=== PATIENT | male | born 1950 | race Caucasian/White ===

== ENCOUNTER → 2016-06-22 | Outpatient (REF) ==
[2016-06-22 11:29] LABS: MEAN PLATELET VOLUME 9.8 FL (6.0-9.5); WHITE BLOOD COUNT 5.3 10^3uL (4.0-11.0)
[2016-06-22 11:30] LABS: MEAN CORPUSCULAR HEMOGLOBIN 32.8 PG (26.0-34.0); MEAN CORPUSCULAR HGB CONC 35.5 g/dL (31.0-37.0)
[2016-06-22 11:41] LABS: ALBUMIN 4.5 g/dL (3.4-5.0); ANION GAP 13.5 MEQ/L (3-15); CALCULATED IONIZED CALCIUM 3.9 mg/dL (3.8-4.6)
== END ==
LOC: CLAB.BLUES 11:14
PROVIDERS: ATTEND Family Medicine
DX: G30.9 Alzheimer's disease, unspecified (principal)
CPT/HCPCS: 80053; 80061; 85027

== ENCOUNTER → 2016-09-07 | Outpatient (REF) ==
[2016-09-07 15:45] LABS: ALBUMIN 4.8 g/dL (3.4-5.0); ANION GAP 18.3 MEQ/L (3-15); CALCULATED IONIZED CALCIUM 4.1 mg/dL (3.8-4.6); TOTAL PROTEIN 8.2 g/dL (6.4-8.5)
== END ==
LOC: CLAB.BLUES 15:25
PROVIDERS: ATTEND Family Medicine
DX: E78.00 Pure hypercholesterolemia, unspecified (principal)
CPT/HCPCS: 80053; 80061